=== PATIENT | male | born 1990 | race Caucasian/White ===

== ENCOUNTER 2017-05-01 10:23 | Observation (INO) ==
[2017-05-01] MEDS ORDERED: Aspirin 81 MG TAB.CHEW PO ONE (10:28)
[2017-05-01] MEDS ORDERED: 0.9 % Sodium Chloride 1,000 ML IVC ONE (10:44)
--- NOTE | 2017-05-01 10:44 | Emergency Department Note ---
Disposition Clinical Impression: Chest pain Qualifiers: Chest pain type: unspecified Qualified Code(s): R07.9 - Chest pain, unspecified Disposition: Still a Patient Condition: Undetermined Referrals: NONE,PCP [Primary Care Provider] - Time of Disposition: 11:15 Chest Pain HPI - General Chief Complaint: ED Chest Pain Stated Complaint: chest pain, dizziness Time Seen by Provider: 05/01/17 10:28 Source: patient, family Limitations: no limitations Vital Signs Reviewed: Yes Nursing Notes Reviewed: Yes - History of Present Illness HPI Narrative: Alert and oriented nontoxic-appearing 26-year-old male presents for evaluation of left-sided chest pain that began approximately 2 hours ago. He states that the pain is intermittent. He describes this pain as sharp. There are no aggravating or alleviating factors. He denies any dyspnea, cough, hemoptysis, or sputum production. He denies any fevers or chills. He states that he was slightly nauseated at the onset of symptoms. He also states that he got "dizzy when the pain started". He denies any previous personal or familial cardiac history. Pt complaint: chest pain Onset (ago): Just [employer] Duration: intermittent Pain Location: left chest Severity scale (1-10): 2 Quality: sharp Pain Radiation: none Improves with: nothing Worsens with: nothing Associated symptoms: Reports: nausea. Denies: vomiting, diaphoresis, dyspnea, palpitations, fever, cough Treatments prior to arrival chest pain: none - Related Data Allergies Allergy/AdvReac Type Severity Reaction Status Date / Time No Known Allergies Allergy Verified 05/01/17 10:23 All systems ED: reviewed and negative except as stated. Constitutional: Denies: fever, chills, weakness, weight change Eyes: Denies: eye pain, eye discharge, vision change ENT ED: Denies: ear pain, throat pain, dental pain, hearing loss, epistaxis, congestion, dysphagia Cardiovascular: Reports: as per HPI, chest pain. Denies: palpitations, dyspnea on exertion, edema, syncope Respiratory: Denies: cough, dyspnea, wheezes, hemoptysis, stridor Gastrointestinal: Reports: as per HPI, nausea. Denies: abdominal pain, vomiting , diarrhea, constipation, hematemesis, melena, hematochezia Genitourinary: Denies: urgency, dysuria, frequency, hematuria Musculoskeletal: Denies: back pain, neck pain, arthralgia, myalgia Integumentary: Denies: rash, abrasion, lesions Neurological: Reports: as per HPI, other (Dizziness). Denies: headache, weakness, numbness, paresthesias, confusion, abnormal gait, vertigo Psychiatric: Denies: anxiety, depression, suicidal thoughts, homicidal thoughts , auditory hallucinations, visual hallucinations Endocrine: Denies: fatigue Hematological/Lymphatic: Denies: easy bleeding, easy bruising Allergic/Immunologic: Denies: facial swelling, urticaria Chest Pain PMH - Past Medical History Medical history: Reports: no medical history Psychiatric history: Reports: no psych history - Social History Smoking Status: Former smoker Alcohol use: Reports: occasionally Drug use: Reports: none Physical Exam - General Limitations: no limitations General appearance: alert, in no apparent distress - Head Head exam: atraumatic, normocephalic, normal inspection - Eye Eye exam: Present: normal appearance, PERRL, EOMI. Absent: nystagmus - ENT ENT exam: mucous membranes moist - Neck Neck exam: Present: normal inspection, full ROM, trachea midline - Chest Chest inspection: Present: normal inspection, symmetric chest wall rise - Respiratory Respiratory exam: Present: normal lung sounds bilaterally. Absent: respiratory distress, wheezes, stridor, accessory muscle use, prolonged expiratory phase - Cardiovascular Cardiovascular exam: Present: regular rate, normal rhythm, normal heart sounds - Abdominal Exam Abdominal exam: Present: soft, Non-Tender, normal bowel sounds - Extremities Exam Extremities exam: Present: normal inspection, full ROM. Absent: tenderness, pedal edema - Neurological Exam Neurological exam: Present: alert, oriented X3 - Psychiatric Psychiatric exam: Present: normal affect, normal mood - Skin Skin exam: Present: warm, dry, intact, normal color Course Vital Signs Temperature 98.0 F 05/01/17 10:23 Pulse Rate 90 05/01/17 10:23 Respiratory Rate 18 05/01/17 10:23 Blood Pressure 165/97 05/01/17 10:23 O2 Sat by Pulse Oximetry 99 05/01/17 10:23 Temperature 98.0 F 05/01/17 10:23 Pulse Rate 90 05/01/17 10:23 Respiratory Rate 18 05/01/17 10:23 Blood Pressure 165/97 05/01/17 10:23 O2 Sat by Pulse Oximetry 99 05/01/17 10:23 Oxygen Delivery Oxygen Delivery Room Air Chest Pain - Medical Records Medical records reviewed: Yes I reviewed the patient's medical records. - Lab Data Result diagrams: 05/01/17 10:47 Lab Results 05/01/17 Range/Units 10:47 WBC 9.0 (4.3-11.1) K/mcL RBC 4.89 (4.19-5.50) M/mcL Hgb 15.0 (12.9-16.9) g/dL Hct 44.1 (37.5-50.1) % MCV 90.2 (83.0-100.0) fL MCH 30.7 (28.0-33.3) pg MCHC 34.0 (31.6-35.5) g/dL RDW 11.9 (11.5-14.5) % Plt Count 228 (140-400) K/mcL MPV 9.9 (9.4-12.4) fL Immature Gran % 0.4 (0-4) % Seg Neutrophils % 60.3 % Lymphocytes % 28.9 % Monocytes % 7.4 % Eosinophils % 2.2 % Basophils % 0.8 % Neutrophils # 5.4 (1.6-8.9) K/mcL Lymphocytes # 2.6 (0.6-4.6) K/mcL Monocytes # 0.7 (0.0-1.3) K/mcL Eosinophils # 0.2 (0.0-0.6) K/mcL Basophils # 0.1 (0.0-0.2) K/mcL - EKG Data EKG attestation: Yes I reviewed and interpreted this EKG. EKG results narrative: EKG reviewed by Dr. Aldrich as well. EKG shows a sinus rhythm at a rate of 85 bpm. DC interval 140, QRS duration 96, QT/QTC intervals 317/360. No ectopy noted. S.B.A.R. - S.B.A.R. Situation: Demographics, MOA Background: Presenting Complaint, Relevant PMH, Meds, & Allergies Assessment: Vital Signs, Course and respsone to treatment, Exam Concerns, Patient/Family Expectation, Pertinant Lab Results, Outstanding Labs Recommendation: Barrier(s) to disposition, Recommendation based on pending studies, treatments, or consults S.B.A.R. Report Given to: Dr. Maryjane Ivory Repor Time: 11:00
[2017-05-01] MEDS ORDERED: Ondansetron 4 MG/2 ML VIAL ONE (10:49)
[2017-05-01] MEDS: Ondansetron 4 MG/2 ML VIAL IVP ONE ×2 (10:52→10:53)
[2017-05-01 11:00] LABS: Basophils # 0.1 K/mcL (0.0-0.2); Basophils % 0.8 %; Eosinophils # 0.2 K/mcL (0.0-0.6); Eosinophils % 2.2 %; Hematocrit 44.1 % (37.5-50.1); Immature Granulocytes % 0.4 % (0-4); Lymphocytes # 2.6 K/mcL (0.6-4.6); Lymphocytes % 28.9 %; Mean Corpuscular Hemoglobin 30.7 pg (28.0-33.3); Mean Corpuscular Volume 90.2 fL (83.0-100.0); Mean Platelet Volume 9.9 fL (9.4-12.4); Monocytes # 0.7 K/mcL (0.0-1.3); Monocytes % 7.4 %; Neutrophils # 5.4 K/mcL (1.6-8.9); Platelet Count 228 K/mcL (140-400); Red Blood Count 4.89 M/mcL (4.19-5.50); Red Cell Distribution Width 11.9 % (11.5-14.5); Segmented Neutrophils % 60.3 %
[2017-05-01 11:07] LABS: INR 0.9; Prothrombin Time 10.1 Seconds (9.4-12.1)
[2017-05-01 11:09] LABS: Activated Partial Thrombo Time 26.9 Seconds (26.0-36.0)
[2017-05-01 11:17] LABS: BUN/Creatinine Ratio 15 (6-26); Blood Urea Nitrogen 15 mg/dL (6-20); Carbon Dioxide 27 mEq/L (23-29); Chloride 103 mEq/L (98-107); Potassium 3.6 mEq/L (3.5-5.1); Sodium 138 mEq/L (136-145); eGFR For African Americans > 60 (> 60)
[2017-05-01 11:18] LABS: Calcium 9.6 mg/dL (8.6-10.3); Glucose 118 mg/dL (70-105); Osmolality,Calculated 288 (280-300); Phosphorous 2.3 mg/dL (2.7-4.5); eGFR For Non-African Americans > 60 (> 60)
[2017-05-01 11:24] LABS: Bilirubin,Urine Negative (Negative); Blood,Urine Negative (Negative); Clarity,Urine Clear (Clear); Color,Urine Yellow (Yellow); Glucose,Urine (UA) Normal (Normal); Ketones,Urine Negative (Negative); Leukocyte Esterase,Urine Negative (Negative); Nitrite,Urine Negative (Negative); Protein,Urine Negative (Neg-Trace); Specific Gravity,Urine 1.016 (1.010-1.025); Urobilinogen,Urine Normal (Normal)
[2017-05-01 11:25] LABS: D-Dimer < 215 ng/mLFEU (0-500)
[2017-05-01 11:28] LABS: Amphetamine Screen,Urine Negative ng/mL (Cutoff=1000); Barbiturate Screen,Urine Negative ng/mL (Cutoff=200); Benzodiazepines Screen,Urine Negative ng/mL (Cutoff=200); Cannabinoid Screen,Urine Positive ng/mL (Cutoff = 50); Cocaine Screen,Urine Negative ng/mL (Cutoff= 300); Opiate Screen,Urine Negative ng/mL (Cutoff=300); Phencyclidine Screen,Urine Negative ng/mL (Cutoff=25)
--- NOTE | 2017-05-01 12:02 | Emergency Department Note ---
Disposition Clinical Impression: Acute electrocardiogram changes Chest pain Qualifiers: Chest pain type: unspecified Qualified Code(s): R07.9 - Chest pain, unspecified Disposition: Admitted As Inpatient Condition: Fair Time of Disposition: 12:56 General Adult HPI - General Chief complaint: ED Chest Pain Stated complaint: chest pain, dizziness Time Seen by Provider: 05/01/17 10:28 Source: patient, family Mode of arrival: ambulatory Limitations: no limitations Nursing Notes Reviewed: Yes Vital Signs Reviewed: Yes - History of Present Illness HPI Narrative: Patient was seen by the primary provider. Please see their documentation for complete history of physical Pain Scale: 2 - Related Data Home Medications Medication Instructions Recorded Confirmed No Known Home Drugs 05/01/17 05/01/17 Allergies Allergy/AdvReac Type Severity Reaction Status Date / Time No Known Allergies Allergy Verified 05/01/17 10:23 Constitutional: Denies: fever, chills, weakness, weight change Eyes: Denies: eye pain, eye discharge, vision change ENT ED: Denies: ear pain, throat pain, dental pain, hearing loss, epistaxis, congestion, dysphagia Cardiovascular: Reports: as per HPI, chest pain. Denies: palpitations, dyspnea on exertion, edema, syncope Respiratory: Denies: cough, dyspnea, wheezes, hemoptysis, stridor Gastrointestinal: Reports: as per HPI, nausea. Denies: abdominal pain, vomiting , diarrhea, constipation, hematemesis, melena, hematochezia Genitourinary: Denies: urgency, dysuria, frequency, hematuria Musculoskeletal: Denies: back pain, neck pain, arthralgia, myalgia Integumentary: Denies: rash, abrasion, lesions Neurological: Reports: as per HPI, other (Dizziness). Denies: headache, weakness, numbness, paresthesias, confusion, abnormal gait, vertigo Psychiatric: Denies: anxiety, depression, suicidal thoughts, homicidal thoughts , auditory hallucinations, visual hallucinations Endocrine: Denies: fatigue Hematological/Lymphatic: Denies: easy bleeding, easy bruising Allergic/Immunologic: Denies: facial swelling, urticaria Past Medical History - Past Medical History Medical history: Reports: no medical history Psychiatric history: Reports: no psych history - Social History Smoking Status: Former smoker Smokeless Tobacco Status: No Alcohol use: Reports: occasionally Drug use: Reports: none Physical Exam - General Limitations: no limitations General appearance: alert, in no apparent distress - Head Head exam: atraumatic - Eye Eye exam: Present: normal appearance - ENT ENT exam: normal exam, normal oropharynx - Neck Neck exam: Present: normal inspection - Chest Chest inspection: Present: normal inspection. Absent: symmetric chest wall rise - Respiratory Respiratory exam: Present: normal lung sounds bilaterally. Absent: respiratory distress - Cardiovascular Cardiovascular exam: Present: regular rate, normal rhythm. Absent: systolic murmur - Abdominal Exam Abdominal exam: Present: soft, Non-Tender - Extremities Exam Extremities exam: Present: normal inspection - Back Exam Back exam: Present: normal inspection - Neurological Exam Neurological exam: Present: alert, oriented X3 - Skin Skin exam: Present: warm, dry, intact, normal color Course Course Narrative: 26-year-old male for evaluation of chest pain. Patient notes that it occurred prior to arrival. Patient had immediate sharp left-sided chest pain that occurred prior to arrival after drinking a glass of water. At that time the patient also had subsequent headache. Patient's headaches resolved and chest pain remained for approximately 40 minutes until resolved prior to arrival to the ER. Patient noted some nausea and vomiting upon arrival to the ER. - Consultations Consultation #1: Spoke with Dr. Richey to review the EKGs. Time: 12:26 Vital Signs Temperature 98.0 F 05/01/17 10:23 Pulse Rate 90 05/01/17 10:23 Respiratory Rate 18 05/01/17 10:23 Blood Pressure 165/97 05/01/17 10:23 O2 Sat by Pulse Oximetry 99 05/01/17 10:23 Temperature 98.0 F 05/01/17 10:23 Pulse Rate 103 05/01/17 12:27 Respiratory Rate 16 05/01/17 12:27 Blood Pressure 139/87 05/01/17 12:27 O2 Sat by Pulse Oximetry 97 05/01/17 12:27 Oxygen Delivery Oxygen Delivery Room Air Medical Decision Making - MDM Narrative Medical decision making narrative: Patient presents with chief minor chest pain. Patient's workup obtained by the primary provider. Patient did have EKG changes. Patient's been chest pain- free in the emergency department. Patient did have precordial hyper acute T waves. Patient also had T-wave inversions which have since resolved serial EKGs. Discussed the case with the general foundry worker recommended observation with monitoring. Patient's been chest pain-free the emergency department. Patient does not describe any initial prodrome prior to onset of chest pain. Patient was not anticoagulated with the EKG changes given the fact that he is denying any chest pain with a negative troponin. - Lab Data Lab results reviewed: Yes I reviewed the patient's lab results. Result diagrams: 05/01/17 10:47 05/01/17 10:47 Lab Results 05/01/17 05/01/17 05/01/17 Range/Units 10:47 10:47 10:47 WBC 9.0 (4.3-11.1) K/mcL RBC 4.89 (4.19-5.50) M/mcL Hgb 15.0 (12.9-16.9) g/dL Hct 44.1 (37.5-50.1) % MCV 90.2 (83.0-100.0) fL MCH 30.7 (28.0-33.3) pg MCHC 34.0 (31.6-35.5) g/dL RDW 11.9 (11.5-14.5) % Plt Count 228 (140-400) K/mcL MPV 9.9 (9.4-12.4) fL Immature Gran % 0.4 (0-4) % Seg Neutrophils % 60.3 % Lymphocytes % 28.9 % Monocytes % 7.4 % Eosinophils % 2.2 % Basophils % 0.8 % Neutrophils # 5.4 (1.6-8.9) K/mcL Lymphocytes # 2.6 (0.6-4.6) K/mcL Monocytes # 0.7 (0.0-1.3) K/mcL Eosinophils # 0.2 (0.0-0.6) K/mcL Basophils # 0.1 (0.0-0.2) K/mcL PT 10.1 (9.4-12.1) Seconds INR 0.9 APTT 26.9 (26.0-36.0) Seconds D-Dimer < 215 (0-500) ng/mLFEU Sodium 138 (136-145) mEq/L Potassium 3.6 (3.5-5.1) mEq/L Chloride 103 (98-107) mEq/L Carbon Dioxide 27 (23-29) mEq/L BUN 15 (6-20) mg/dL Creatinine 0.97 (0.70-1.30) mg/dL Est GFR ( Amer) > 60 (> 60) Est GFR (Non-Af Amer) > 60 (> 60) BUN/Creatinine Ratio 15 (6-26) Glucose 118 H (70-105) mg/dL Calculated Osmolality 288 (280-300) Calcium 9.6 (8.6-10.3) mg/dL Phosphorus 2.3 L (2.7-4.5) mg/dL Magnesium 2.0 (1.6-2.6) mg/dL Troponin I (< 0.04) ng/mL Urine Color (Yellow) Urine Clarity (Clear) Urine pH (5.0-8.0) pH Units Ur Specific [place] (1.010-1.025) Urine Protein (Neg-Trace) mg/dL Urine Glucose (UA) (Normal) mg/dL Urine Ketones (Negative) mg/dL Urine Blood (Negative) Urine Nitrite (Negative) Urine Bilirubin (Negative) Urine Urobilinogen (Normal) mg/dL Ur Leukocyte Esterase (Negative) Ur Culture Indicated? (NO) Urine Opiates Screen (Kljatc=061) ng/mL Ur Barbiturates Screen (Rczoqu=668) ng/mL Ur Phencyclidine Scrn (Cutoff=25) ng/mL Ur Amphetamines Screen (Mbiwzi=8049) ng/mL U Benzodiazepines Scrn (Ohpjdy=691) ng/mL Urine Cocaine Screen (Cutoff= 300) ng/mL U Marijuana (THC) Screen (Cutoff = 50) ng/mL 05/01/17 05/01/17 05/01/17 Range/Units 10:47 11:04 11:04 WBC (4.3-11.1) K/mcL RBC (4.19-5.50) M/mcL Hgb (12.9-16.9) g/dL Hct (37.5-50.1) % MCV (83.0-100.0) fL MCH (28.0-33.3) pg MCHC (31.6-35.5) g/dL RDW (11.5-14.5) % Plt Count (140-400) K/mcL MPV (9.4-12.4) fL Immature Gran % (0-4) % Seg Neutrophils % % Lymphocytes % % Monocytes % % Eosinophils % % Basophils % % Neutrophils # (1.6-8.9) K/mcL Lymphocytes # (0.6-4.6) K/mcL Monocytes # (0.0-1.3) K/mcL Eosinophils # (0.0-0.6) K/mcL Basophils # (0.0-0.2) K/mcL PT (9.4-12.1) Seconds INR APTT (26.0-36.0) Seconds D-Dimer (0-500) ng/mLFEU Sodium (136-145) mEq/L Potassium (3.5-5.1) mEq/L Chloride (98-107) mEq/L Carbon Dioxide (23-29) mEq/L BUN (6-20) mg/dL Creatinine (0.70-1.30) mg/dL Est GFR ( Amer) (> 60) Est GFR (Non-Af Amer) (> 60) BUN/Creatinine Ratio (6-26) Glucose (70-105) mg/dL Calculated Osmolality (280-300) Calcium (8.6-10.3) mg/dL Phosphorus (2.7-4.5) mg/dL Magnesium (1.6-2.6) mg/dL Troponin I < 0.03 (< 0.04) ng/mL Urine Color Yellow (Yellow) Urine Clarity Clear (Clear) Urine pH 7.0 (5.0-8.0) pH Units Ur Specific [place] 1.016 (1.010-1.025) Urine Protein Negative (Neg-Trace) mg/dL Urine Glucose (UA) Normal (Normal) mg/dL Urine Ketones Negative (Negative) mg/dL Urine Blood Negative (Negative) Urine Nitrite Negative (Negative) Urine Bilirubin Negative (Negative) Urine Urobilinogen Normal (Normal) mg/dL Ur Leukocyte Esterase Negative (Negative) Ur Culture Indicated? NO (NO) Urine Opiates Screen Negative (Cezaai=503) ng/mL Ur Barbiturates Screen Negative (Ojrmqw=876) ng/mL Ur Phencyclidine Scrn Negative (Cutoff=25) ng/mL Ur Amphetamines Screen Negative (Mfsbhl=5809) ng/mL U Benzodiazepines Scrn Negative (Agjhmd=664) ng/mL Urine Cocaine Screen Negative (Cutoff= 300) ng/mL U Marijuana (THC) Screen Positive H (Cutoff = 50) ng/mL - Radiology Data Radiology results reviewed: Yes I reviewed the patient's radiology results. Chest X-Ray 05/01/17 10:28 IMPRESSION: No acute cardiopulmonary disease D/ / Radames Villeda MD / Radames Villeda MD Interpreting Provider: Radames Villeda MD - EKG Data EKG #1 EKG attestation: Yes I reviewed and interpreted this EKG. EKG shows normal: sinus rhythm Rate: normal Rhythm: NSR [place]/QRS: normal T wave inversions noted in: v2, v3 Interpretation: no acute changes, unchanged when compared to prior tracing (date ), nonspecific ST-T wave changes S.B.Lissette - S.BRudy Situation: Demographics Background: Presenting Complaint Assessment: Vital Signs, Course and respsone to treatment, Patient/Family Expectation Recommendation: Barrier(s) to disposition, Recommendation based on pending studies, treatments, or consults S.B.Lissette Report Given to: Dr. Bimal Ivory Repor Time: 12:55 Attestation Statement - Attestation Attestation: I examined this patient and my medical decision-making was reviewed with the Resident Physician, Dr. Delgado. I agree with the documented findings, disposition and treatment plan as described except to the extent set forth below. Patient is a 26-year-old white male otherwise healthy presents to the emergency department brought by family today for complaints of sudden onset chest pain. Patient states he was home at restaurant having a glass of water when he suddenly developed a very sharp left-sided chest discomfort that was associated with nausea, shortness of breath, diaphoresis, and a generalized headache. Patient denies any radiation of the pain up the neck into the had states that the headache was but simultaneous. Patient denies any cardiac history or prior cardiac testing in the past. No risk factors and no significant family history. Patient states that the headache resolved within minutes and has not recurred but the chest pain lasted for approximately 40-45 minutes. Patient was pain-free on arrival to the ED. Patient's EKG was concerning showing a normal sinus rhythm at 69 bpm bout with hyperacute T waves as well as T-wave inversion and some SC depression appreciated in the inferior leads. This is new compared to his prior EKG from December 052009. I agree with patient's physical exam findings as documented. Vital signs are stable on arrival. Patient is in no acute distress at bedside on my assessment. Patient had serial EKGs performed in the department and did show some resolution of his T-wave inversion but persistent hyperacute T waves. Patient with no recurrence of pain and has been resting comfortably throughout his ED course. Patient's lab evaluation including troponin is within normal limits, chest x-ray is unremarkable. Dr. Richey was on-call for cardiology and we discussed the case with Dr. Richey and faxed him the EKGs for review. He is unclear but agrees that these are abnormal and patient should be brought in for further evaluation. Patient agrees with admission and case was discussed with the hospitalist who accepted patient for admission for further evaluation and management. Patient remains chest pain-free with stable vitals at this time.
--- NOTE | 2017-05-01 12:58 | Internal Med History&Physical ---
Date of Encounter: 05/01/17 Time of Encounter: 12:57 Assessment and Plan (1) Chest pain Current visit: Yes Status: Acute Admit for observation Trend [place]on (initial Troponin wnl) Telemetry Echo ordered Exercise / myocardial perfusion stress test Qualifiers: Chest pain type: precordial pain Qualified Code(s): R07.2 - Precordial pain Code(s): R07.9 - Chest pain, unspecified (2) Acute electrocardiogram changes Current visit: Yes Status: Acute Repeat ECG shows SR w/o ischemic change Internal Medicine - H&P: HPI Chief complaint: Left-sided nonradiating CP Admitted From: Emergency Dept Plans for Post Hospital Care: Home History of present illness: 26-year-old male patient with sudden onset of left-sided sharp, non-radiating chest pain which occurred at rest and persisted for approximately 2 hours. He is under a lot of stress but was not exerting himself prior to the occurrence of chest pain. He has no prior history of chest pain or CAD and has no family history of CAD. He does not use cocain or amphetamines and his UDS was negative except for HTC. He experienced N/V after arrival in the ER now relieved with Zofran. He's been in usual state of health and denies dyspnea, cough, hemoptysis , or sputum production. His CXR does not show infiltrates or other active disease. His initial ECG showed TWIs but subsequent ECGs show sinus rhythm without ischemic changes. He does meet voltage criteria for LVH and was initially hypertensive upon arrival in the ER. The ER physcian spoke with cardiology and observation with monitoring was recommended. He's never had a cardiac w/u before and will be admitted for observation and futher w/u. Past Med Surg Social Fam HX - Past Medical History Medical history: no medical history Psychiatric history: no psych history - Social History Smoking Status: Former smoker Smokeless Tobacco Status: No Alcohol use: occasionally Drug use: none Internal Medicine - H&P: Meds No Known Home Drugs 05/01/17 [History] 3 Allergy/AdvReac Type Severity Reaction Status Date / Time No Known Allergies Allergy Verified 05/01/17 10:23 All Systems PM: A 10-system review of systems was performed and is negative for pertinent findings except as documented above in the HPI. - Constitutional Constitutional: no excessive sweating, no fever(s), no lethargy, no night sweats , no weight gain, no weight loss - EENT Eyes: no blurry vision, no change in vision, no pain Ears: as per HPI, no ear discharge, no ear pain Nose, mouth and throat: no bleeding gums, no dysphagia, no epistaxis, no lip swelling, no neck mass, no neck pain, no sinus pressure, no sore throat - Cardiovascular Cardiovascular ROS IM: chest pain, no diaphoresis, no dyspnea, no dyspnea on exertion, no edema, no irregular heart rhythm, no orthopnea, no palpitations, no paroxysmal nocturnal dyspnea, no syncope, no other - Respiratory Respiratory: no cough, no dyspnea, no hemoptysis, no wheezing, no stridor - Gastrointestinal Gastrointestinal: nausea, vomiting, no abdominal pain, no diarrhea, no hematochezia, no loose stools, no melena, no odynophagia - Genitourinary Genitourinary ROS male: no testicular mass, no urinary frequency, no urinary hesitancy - Musculoskeletal Musculoskeletal ROS IM: no muscle cramps, no muscle weakness, no neck pain, no stiffness - Integumentary Integumentary IM: no pruritus, no rash, no skin ulcer, no sores, no jaundice - Neurological Neurological ROS: headache(s), no abnormal hearing, no abnormal movements, no confusion, no disequilibrium, no dizziness, no focal weakness, no numbness, no paresthesias, no tingling, no vertigo - Psychiatric Psychiatric: no confusion, no hallucinations, no homicidal ideation, no suicidal ideation - Hematologic/Lymphatic Hematologic/Lymphatic: as per HPI - Allergic/Immunologic Allergic/Immunologic: as per HPI - Constitutional Vitals: Temp Pulse Resp BP Pulse Ox 98.0 F 103 16 139/87 97 05/01/17 10:23 05/01/17 12:27 05/01/17 12:27 05/01/17 12:27 05/01/17 12:27 General appearance: Present: A&O X 3, no acute distress - Head Head exam: Present: atraumatic, normocephalic - Eye Eye exam: Present: EOMI, PERRL, conjuntiva pink, sclera anicteric Pupils: Present: PERRL - Neck Neck exam general surgery: Present: full ROM, supple, trachea midline. Absent: lymphadenopathy, tenderness, nuchal rigidity, thyromegaly - Respiratory Respiratory exam: Present: accessory muscle use, CTAB. Absent: chest wall tenderness, stridor, wheezes, tachypnea - Cardiovascular Cardiovascular exam: Present: RRR, +S1, +S2. Absent: bradycardia, distant heart sounds, tachycardia - GI/Abdominal GI/Abdominal exam: Absent: diminished bowel sounds, guarding, hepatomegaly, rebound, rigid - Neurological Exam Neurological exam: Present: alert, CN II-XII intact, oriented X3. Absent: motor sensory deficit - Skin Skin exam: Present: dry, warm. Absent: erythema, mottled, rash Internal Med - H&P Results - Labs CBC & Chem 7: 05/01/17 10:47 05/01/17 10:47 Labs: Short CBC 05/01/17 Range/Units 10:47 WBC 9.0 (4.3-11.1) K/mcL Hgb 15.0 (12.9-16.9) g/dL Hct 44.1 (37.5-50.1) % Plt Count 228 (140-400) K/mcL Neutrophils # 5.4 (1.6-8.9) K/mcL BMP 05/01/17 10:47 Sodium 138 Potassium 3.6 Chloride 103 Carbon Dioxide 27 BUN 15 Creatinine 0.97 Glucose 118 H Calcium 9.6 Cardiac Enzymes 05/01/17 Range/Units 10:47 Troponin I < 0.03 (< 0.04) ng/mL Urine 05/01/17 Range/Units 11:04 Urine Color Yellow (Yellow) Urine Clarity Clear (Clear) Urine pH 7.0 (5.0-8.0) pH Units Ur Specific [place] 1.016 (1.010-1.025) Urine Protein Negative (Neg-Trace) mg/dL Urine Glucose (UA) Normal (Normal) mg/dL - Impressions ITS Impressions Chest X-Ray 05/01/17 10:28 IMPRESSION: No acute cardiopulmonary disease D/ / Radames Villeda MD / Radames Villeda MD Interpreting Provider: Radames Villeda MD
[2017-05-01] MEDS ORDERED: Nitroglycerin 0.4 MG TAB.SUBL SL PRN (13:30)
[2017-05-01 14:16] LABS: Hemoglobin A1C 5.1 %
[2017-05-02 01:37] LABS: Basophils % 0.4 %; Eosinophils # 0.2 K/mcL (0.0-0.6); Eosinophils % 1.9 %; Hematocrit 44.8 % (37.5-50.1); Hemoglobin 15.2 g/dL (12.9-16.9); Immature Granulocytes % 0.3 % (0-4); Lymphocytes # 3.2 K/mcL (0.6-4.6); Lymphocytes % 33.1 %; Mean Corpuscular HGB Conc 33.9 g/dL (31.6-35.5); Mean Corpuscular Hemoglobin 30.9 pg (28.0-33.3); Mean Corpuscular Volume 91.1 fL (83.0-100.0); Mean Platelet Volume 10.1 fL (9.4-12.4); Monocytes # 0.8 K/mcL (0.0-1.3); Monocytes % 8.5 %; Neutrophils # 5.3 K/mcL (1.6-8.9); Platelet Count 208 K/mcL (140-400); Red Blood Count 4.92 M/mcL (4.19-5.50); Red Cell Distribution Width 11.9 % (11.5-14.5); Segmented Neutrophils % 55.8 %
[2017-05-02 01:53] LABS: Prothrombin Time 11.1 Seconds (9.4-12.1)
[2017-05-02 02:02] LABS: Alanine Aminotransferase 13 Units/L (7-52); Albumin 4.6 g/dL (3.5-5.7); Albumin/Globulin Ratio 2.3 (1.1-2.2); Alkaline Phosphatase 45 Units/L (34-104); Aspartate Amino Transferase 17 Units/L (13-39); BUN/Creatinine Ratio 17 (6-26); Bilirubin,Total 0.7 mg/dL (0.3-1.0); Blood Urea Nitrogen 18 mg/dL (6-20); Calcium 9.7 mg/dL (8.6-10.3); Carbon Dioxide 29 mEq/L (23-29); Chloride 102 mEq/L (98-107); Glucose 102 mg/dL (70-105); Magnesium 2.2 mg/dL (1.6-2.6); Osmolality,Calculated 282 (280-300); Potassium 3.8 mEq/L (3.5-5.1); Sodium 135 mEq/L (136-145); Total Protein 6.6 g/dL (6.4-8.9); eGFR For African Americans > 60 (> 60); eGFR For Non-African Americans > 60 (> 60)
[2017-05-02 13:05] VITALS: BP 134/79
--- NOTE | 2017-05-02 15:44 | Discharge Summary ---
Date of Encounter: 05/02/17 Time of Encounter: 15:40 - Discharge Diagnosis (1) Acute electrocardiogram changes Priority: Primary Status: Acute Comments: Repeat EKG showed sinus rhythm without ischemic change (2) Chest pain Priority: Primary Status: Acute Comments: Stress test, echocardiogram and chest x-ray were completed with no abnormal findings Troponins were negative 3 sets. Patient has been cleared for discharge. Answered his questions and he is ready to go. Qualifiers: Chest pain type: precordial pain Qualified Code(s): R07.2 - Precordial pain (3) GERD (gastroesophageal reflux disease) Priority: Primary Status: Acute Comments: Patient has no insurance at this time so instructed him to obtain an over-the- counter anti-acid/reflux medication such as Prilosec. Qualifiers: Esophagitis presence: esophagitis presence not specified Qualified Code(s) : K21.9 - Gastro-esophageal reflux disease without esophagitis (4) Marijuana user Priority: Secondary Status: Acute Comments: Patient states he quit smoking several months ago and his last bleed was 3 weeks ago. - Discharge Medications Home Medications: No Known Home Drugs 05/01/17 [History] Allergies/Adverse Reactions: 3 Allergy/AdvReac Type Severity Reaction Status Date / Time No Known Allergies Allergy Verified 05/01/17 10:23 Procedures/tests Complete & Pending: Procedures Performed prior 72 hours Category Date Time Status NM mitra perf SPECT multi [NM] Routine Exams 05/01/17 13:37 Taken ECG 12 lead ECG [ECG] AM 0600 Y 05/02/17 06:00 Ordered EV echocardiogram Routine Y 05/01/17 13:30 Completed SP exercise nuclear stress Routine Y 05/02/17 13:35 Completed Date of admission: 05/01/17 13:05 Primary care physician: PCP NONE Discharging clinician: Lawanda Montanez Anticipated date of discharge: 05/02/17 - Patient Status Disposition: Home, Self-Care Condition: Fair Functional capacity at discharge: independent ambulation Overall status at discharge: patient is back to baseline - Discharge Instructions Follow Up With: NONE,PCP [Primary Care Provider] - Forms: ED Satisfaction Letter Additional Instructions: Need to establish with a primary care physician. Until you obtained a job with insurance he can use utilize [id number] antireflux medication such as Nexium or Prilosec. - Diet and Activity Activity: resume usual activities as tolerated Diet: advance to your usual diet Interval History: Patient is currently pain free. He denies any shortness of breath fever or chills sweats or dizziness. He is ready to go home once he gets a job with insurance he plans on establishing with a primary care physician. Hospital course: Mr. Bal is a 26 year old male with sudden onset of left-sided sharp nonradiating chest pain which occurred at rest and persisted for 2 hours. He is under a lot of stress. He has no prior history of feeling like this and no family history of CAD. He stopped smoking several months ago. He had an episode of nausea and vomiting that was relieved with some Zofran. His chest x- ray was unremarkable. His EKG showed sinus rhythm without ischemic changes after the initial showed some T-wave inversions. Stress test, echo, check serial troponins, chest x-ray, and repeated EKGs were obtained and reviewed with no abnormal findings. He will be discharged home and plans to obtain a PCP once he gets insurance. He will also get some [id number] Prilosec for his GERD. - Time Spent with Patient Total time spent providing and/or coordinating discharge services: Less than 30 minutes - Constitutional Vitals: Temp Pulse Resp BP Pulse Ox 98.4 F 83 17 134/79 98 05/02/17 13:04 05/02/17 13:04 05/02/17 13:04 05/02/17 13:04 05/02/17 13:04 General appearance: Present: cooperative, A&O X 3, pleasant, no acute distress, answers questions appropriately - Head Head exam: Present: atraumatic, normocephalic - Eye Eye exam: Present: PERRL, conjuntiva pink, sclera anicteric Pupils: Present: PERRL - Neck Neck exam general surgery: Present: supple, trachea midline. Absent: lymphadenopathy - Respiratory Respiratory exam: Present: CTAB. Absent: accessory muscle use, rales, rhonchi, wheezes - Cardiovascular Cardiovascular exam: Present: RRR, +S1, +S2. Absent: diastolic murmur, gallop, rubs, systolic murmur - GI/Abdominal GI/Abdominal exam: Present: normal bowel sounds, soft, no peritoneal signs. Absent: distended, tenderness - Extremities Exam Extremities exam: Present: warm, radial pulses palpable and symmetrical. Absent : calf tenderness, cyanotic, pedal edema - Neurological Exam Neurological exam: Present: CN II-XII intact, oriented X3, no focal deficits. Absent: pronater drift, facial droop, speech deficit - Skin Skin exam: Present: dry, intact, warm
--- NOTE | 2017-05-03 10:39 | Electrocardiograph Report ---
[facility] Test Date: 2017-05-01 Pat Name: Radames Bal Department: 102 Room: 3B54 Gender: M Urgent Care Technician: Chelly : 1990 Requested By: Bobby Herbert Order Number: [id number] Reading MD: Abdifatah Valles MD Measurements Intervals [place] Rate: 85 P: 78 NH: 140 QRS: 85 QRSD: 96 T: 70 QT: 317 QTc: 360 Interpretive Statements SINUS RHYTHM Electronically Signed On 05-03-2017 10:37:27 EST by Abdifatah Valles MD
--- NOTE | 2017-05-03 10:39 | Electrocardiograph Report ---
[facility] Test Date: 2017-05-01 Pat Name: Radames Bal Department: 102 Room: 3B54 Gender: M Commissioned Police Officer: : 1990 Requested By: Nitish Delgado Order Number: [id number] Reading MD: Abdifatah Valles MD Measurements Intervals [place] Rate: 69 P: 76 MN: 141 QRS: 79 QRSD: 96 T: 59 QT: 348 QTc: 367 Interpretive Statements SINUS RHYTHM Electronically Signed On 05-03-2017 10:38:15 EST by Abdifatah Valles MD
== END 2017-05-02 16:35 | disposition home or self-care (01) ==
LOC: 3BNU 10:23 → EMEROO 10:23 → 3BNU 13:17
PROVIDERS: ADMIT Internal Medicine Cardiovascular Disease; ATTEND Registered Nurse